=== PATIENT | male | born 1950 ===

== ENCOUNTER → 2024-06-28 | Outpatient (CLI) | payer MEDICARE ==
[2024-06-28 13:13] LABS: Creatinine, Urine Random 40.1 mg/dL (27.00-270.00)
[2024-06-28 13:16] LABS: Microalb/Creat Ratio UR, Rand 15.162 mg/g (0.000-30.000); Microalbumin, Random Urine 6.08 mg/L (0.000-20.000)
== END ==
LOC: LAB 10:46 → LAB SHORT 10:46
PROVIDERS: Student in an Organized Health Care Education/Training Program
DX: E11.9 Type 2 diabetes mellitus without complications (principal); Z79.4 Long term (current) use of insulin
CPT/HCPCS: 82043; 82570